=== PATIENT | male | born 1945 | race Caucasian/White ===

== ENCOUNTER 2020-04-03 15:28 | Emergency (ER) | payer MEDICARE, OTHER ==
[~2020-04-03] VITALS: Ht 177.8 cm; Wt 92.0 kg
--- NOTE | 2020-04-03 15:43 | PHYS DOC ---
General Adult EDM: Chief Complaint: DIZZY/LIGHT HEADED HPI: HPI: 74-year-old male coming in for shortness of breath and hypoxia. Is known Covid diagnosis for little over a week but has noted increasing dyspnea on exertion. Is having difficulty walking to his restroom without getting short of breath. Has a pulse ox at home which has been reading in the upper 70s. Instructed by his primary care physician to present to the ER for hospital mission. Has had cough productive of yellow phlegm, body aches. Denies loss of sense of smell, vomiting, diarrhea. Has a history of coronary artery disease and heart failure. States he has had stents in the past but they were removed. Takes aspirin but no other blood thinners due to history of stomach cancer. Review of Systems: Review of Systems: Constitutional: Denies fever or chills Eyes: Denies change in visual acuity HENT: Denies nasal congestion or sore throat Respiratory: Productive cough and shortness of breath Cardiovascular: Denies chest pain or edema GI: Denies abdominal pain, nausea, vomiting, bloody stools or diarrhea : Denies dysuria Musculoskeletal: Denies back pain or joint pain Integument: Denies rash Neurologic: Denies headache, focal weakness or sensory changes Endocrine: Denies polyuria or polydipsia Lymphatic: Denies swollen glands Psychiatric: Denies depression or anxiety Heart Score: Risk Factors: Risk Factors: DM, Current or recent (<one month) smoker, HTN, HLP, family history of CAD, obesity. Risk Scores: Score 0 - 3: 2.5% MACE over next 6 weeks - Discharge Home Score 4 - 6: 20.3% MACE over next 6 weeks - Admit for Clinical Observation Score 7 - 10: 72.7% MACE over next 6 weeks - Early Invasive Strategies Current Medications: Current Meds: Sertraline 50 mg, furosemide 80 mg once a day, baby aspirin 81 mg once daily, pantoprazole 40 mg once daily, eplerenone 50 mg once daily, pravastatin 20 mg daily, finasteride 5 mg daily, ezetimibe 10 mg once daily, carvedilol 25 mg twice daily, Klor-Con 10 mEq as needed, nitroglycerin as needed Allergies: Allergies: Allergies Uncoded Allergies Type Severity Reaction Last Updated Verified PENICILLIN Allergy Unknown 04/03/20 Physical Exam: PE: Constitutional: Well developed, well nourished, no acute distress, non-toxic appearance. [] HENT: Normocephalic, atraumatic, bilateral external ears normal, oropharynx moist, no oral exudates, nose normal. [] Eyes: PERRLA, EOMI, conjunctiva normal, no discharge. [] Neck: Normal range of motion, no tenderness, supple, no stridor. [] Cardiovascular:Heart rate regular rhythm, no murmur [] Lungs & Thorax: Bilateral breath sounds clear to auscultation [] Abdomen: Bowel sounds normal, soft, no tenderness, no masses, no pulsatile masses. [] Skin: Warm, dry, no erythema, no rash. [] Back: No tenderness, no CVA tenderness. [] Extremities: No tenderness, no cyanosis, no clubbing, ROM intact, no edema. [] Neurologic: Alert and oriented X 3, normal motor function, normal sensory function, no focal deficits noted. [] Psychologic: Affect normal, judgement normal, mood normal. [] EKG: EKG: [] Radiology/Procedures: Radiology/Procedures: CHEST AP ONLY History: Reason: covid, low o2 sats / Spl. Instructions: / History: Comparison: August 04, 2011 Findings: Patchy bibasilar opacity. Small left pleural effusion. Left-sided pacemaker/ICD. Prior mid sternotomy. No pneumothorax. Ill-defined patchy right mid and basilar opacities. Acromioclavicular DJD. Impression: 1. Multifocal pulmonary opacities most prominent within the left lung base, may represent pneumonia including viral pneumonia. Recommend follow-up to ensure resolution. 2. Small left pleural effusion. [] Course & Med Decision Making: Course & Med Decision Making Pertinent Labs and Imaging studies reviewed. (See chart for details) Dr. Bolivar consulted for admission for hypoxia related to Covid [] Dragon Disclaimer: Dragon Disclaimer: This electronic medical record was generated, in whole or in part, using a voice recognition dictation system. Departure Departure: Disposition: DC HOME SELF CARE/HOMELESS Condition: STABLE Referrals: PCP,NO (PCP) NICOLE WICK MD Apr 03, 2020 15:43
--- NOTE | 2020-04-03 16:34 | RAD ---
CHEST AP ONLY History: Reason: covid, low o2 sats / Spl. Instructions: / History: Comparison: August 04, 2011 Findings: Patchy bibasilar opacity. Small left pleural effusion. Left-sided pacemaker/ICD. Prior mid sternotomy. No pneumothorax. Ill-defined patchy right mid and basilar opacities. Acromioclavicular DJD. Impression: 1. Multifocal pulmonary opacities most prominent within the left lung base, may represent pneumonia including viral pneumonia. Recommend follow-up to ensure resolution. 2. Small left pleural effusion. Electronically signed by: Ryan Garrido DO (04/03/2020 4:31 PM) [facility]
[2020-04-03] MEDS ORDERED: IV NORMAL SALINE 50ML 50 ML ONE ×2 (17:28→18:15)
[2020-04-03] MEDS ORDERED: AZITHROMYCIN 500 MG VIAL. IV ONE ×2 (17:28→18:15)
[2020-04-03] MEDS ORDERED: IV NORMAL SALINE 250ML 250 ML ONE ×2 (17:28→18:15)
[2020-04-03] MEDS ORDERED: cefTRIAXone SODIUM 1 GM VIAL ONE ×2 (17:28→18:15)
[2020-04-03] MEDS: DEXAMETHASONE SOD PHOS 10 MG/ML VIAL. IV ONE (18:20)
[2020-04-03] MEDS: AZITHROMYCIN 500 MG in IV NORMAL SALINE 250ML 250 ML IV ONE (18:31)
[2020-04-03 18:40] VITALS: BP 142/80
== END 2020-04-03 19:30 | disposition short-term general hospital (02) ==
LOC: ER 15:28
DX: R06.02 Shortness of breath (principal); R09.02 Hypoxemia; R26.2 Difficulty in walking, not elsewhere classified; Z88.0 Allergy status to penicillin
CPT/HCPCS: 36415; 71045; 83605; 83880; 84484; 85379; 86140; 96365; 96375; 99285; J0456; J0696; J1100; J7050

== ENCOUNTER 2021-05-28 17:02 | Emergency (ER) | payer MEDICARE, OTHER ==
[~2021-05-28] VITALS: Ht 177.8 cm; Wt 91.8 kg
--- NOTE | 2021-05-28 17:12 | EKG ---
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
[2021-05-28] MEDS ORDERED: NITROGLYCERIN SUBLINGUAL 0.4 MG BOTTLE OF 25. SL PRN (17:15)
--- NOTE | 2021-05-28 17:17 | PHYS DOC ---
Past History Past Medical History: A-Fib, Cancer, CHF, Depression, GERD, Heart Disease, Other Additional Past Medical Histor: Malt lymphoma of the stomach (MANOJ MENA APRN) Additional Past Surgical Histo: CABG X2, hand surgery, EGDs, Pacemaker/defibrillator (MANOJ MENA APRN) Alcohol Use: Rarely (MANOJ MENA APRN) General Adult EDM: Chief Complaint: SHORTNESS OF BREATH HPI: HPI: Patient is a 75-year-old male who presents to the emergency department for a 2- week history of shortness of breath with chest pressure. Patient reports that he has congestive heart failure and is normally dyspneic but it has increased. Patient reports a midsternal chest pressure pain it is worse with inspiration. Patient also has history of A. fib, pacemaker, CABG. Patient denies cough, fever, dizziness, nausea, vomiting, abdominal pain. (MANOJ MENA APRN) Review of Systems: Review of Systems: Constitutional: See HPI Respiratory: See HPI Cardiovascular: See HPI GI: See HPI Neuro: See HPI (MANOJ MENA APRN) Allergies: Allergies: Allergies Coded Allergies Type Severity Reaction Last Updated Verified Penicillins Allergy Unknown 04/03/20 Yes (MANOJ EMNA APRN) Physical Exam: PE: Constitutional: Well developed, well nourished, no acute distress, non-toxic appearance. [] HENT: Normocephalic, atraumatic, bilateral external ears normal, oropharynx moist, no oral exudates, nose normal. [] Eyes: PERRL, EOMI, conjunctiva normal, no discharge. [] Neck: Normal range of motion, no tenderness, supple, no stridor. [] Cardiovascular:Heart rate regular rhythm, no murmur, chest pain not reproducible [] Lungs & Thorax: Bilateral breath sounds clear to auscultation [] Abdomen: Bowel sounds normal, soft, no tenderness, obese, no masses, no pulsatile masses. [] Skin: Warm, dry, no erythema, no rash. [] Back: Normal range of motion Extremities: No tenderness, no cyanosis, no clubbing, ROM intact, no edema. [] Neurologic: Alert and oriented X 3, normal motor function, normal sensory function, no focal deficits noted. [] Psychologic: Affect normal, judgement normal, mood normal. [] (MANOJ MENA APRN) EKG: EKG: EKG performed by ER staff at 1708 shows A. fib with PVCs with a rate of 69, QTC of 415, no STEMI read by Dr. Magaña 1710 [] (MANOJ MENA APRN) Radiology/Procedures: Radiology/Procedures: []PROCEDURE: PORTABLE CHEST 1V EXAM: AP View of the chest DATE: 05/28/2021 5:08 PM INDICATION: Reason: mid chest discomfort with trouble breathing times 1 week / Spl. Instructions: / History: COMPARISON: No Prior FINDINGS/ IMPRESSION: Cardiac generator pack obscures a portion of the left chest with leads in stable position. Cardiomediastinal silhouette is stable. Small bilateral pleural effusions, greater on the left. Associated left greater than right lung base opacities, possibly atelectasis or resolving consolidation. Imaging follow-up to resolution is recommended. No pneumothorax. Electronically signed by: Michael Galicia MD (05/28/2021 5:37 PM) [facility] DICTATED AND SIGNED BY: MICHAEL GALICIA MD DATE: 05/28/211735 CC: ROX BURRIS MD; MANOJ MENA APRN ~MTH0 0 (MANOJ MENA APRN) Heart Score: C/O Chest Pain: Yes HEART Score for Chest Pain: HEART Score for Chest Pain Response (Comments) Value History Moderately Suspicious 1 ECG Nonspecific Repolarizatio 1 Age > 65 2 Risk Factors >3 Risk Factors or Hx CAD 2 Troponin < Normal Limit ( ) 0 Total 6 Risk Factors: Risk Factors: DM, Current or recent (<one month) smoker, HTN, HLP, family history of CAD, obesity. Risk Scores: Score 0 - 3: 2.5% MACE over next 6 weeks - Discharge Home Score 4 - 6: 20.3% MACE over next 6 weeks - Admit for Clinical Observation Score 7 - 10: 72.7% MACE over next 6 weeks - Early Invasive Strategies (MANOJ MENA APRN) Course & Med Decision Making: Course & Med Decision Making Pertinent Labs and Imaging studies reviewed. (See chart for details) [] Patient presents to the emergency department for chest pressure and increased shortness of breath x2 weeks. Patient has an extensive health history including A. fib, CHF, pacemaker, obesity, CABG. Work-up in the ER consisted of blood work, EKG, chest x-ray. Patient treated with nitro tablet as he states he took aspirin prior to arrival. Patient's blood work is unremarkable, troponin of 11. His BNP is 1162. Chest x-ray shows left basilar opacity worse than the right lower opacity. Patient is allergic to penicillin. Patient will be needed antibiotic therapy therefore he'll be treated with Levaquin. I would like to admit the patient to this hospital for cardiac observation as his heart score is 6. I discussed patient's findings with him and care plan. Patient and his do not want to be admitted at this facility and do not want to be transferred to [facility]. They're requesting transfer to [facility] where his cardiology is at. I contacted [facility] transfer line and they state that they're not accepting any transfers at this time. I discussed these results with patient and they state that they will not be admitted at this facility. They acknowledged the risks associated with leaving AGAINST MEDICAL ADVICE without admission and cardiac observation which includes worsening of patient's condition and . Patient and his are capable of making medical decisions. AMA papers signed. Patient will be discharged home with an antibiotic. I discussed follow-up information with patient and the need to go to [facility]. (MANOJ MENA APRN) Farihaon Disclaimer: Yang Disclaimer: This electronic medical record was generated, in whole or in part, using a voice recognition dictation system. (MANOJ MENA APPLICATION INTEGRATION SPECIALIST) Departure Departure: Impression: Primary Impression: Chest pain Qualified Codes: R07.9 - Chest pain, unspecified Additional Impressions: Pneumonia Qualified Codes: J18.9 - Pneumonia, unspecified organism CHF exacerbation Qualified Codes: I50.9 - Heart failure, unspecified Disposition: LEFT AGAINST MEDICAL ADVICE Condition: GUARDED Referrals: ROX BURRIS MD (PCP) Patient Instructions: Chest Pain (Nonspecific) Additional Instructions: You were seen in the emergency department today for chest pain. You were noted to have a lower lobe pneumonia. This will be treated with the antibiotic. Please start and finish the antibiotic completely. This may cause GI upset. As we discussed, I would've like to have admitted you at this hospital for your chest pain but you refused. You signed out AGAINST MEDICAL ADVICE. You understand that leaving AGAINST MEDICAL ADVICE can lead to worsening of your condition and . 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 Scripts Levofloxacin (LEVOFLOXACIN) 750 Mg Tablet 1 TAB PO DAILY for pneumonia, #5 TAB 0 Refills Prov: MANOJ MENA APRN 05/28/21 Attending Signature Attending Signature I have participated in the care of this patient and I have reviewed and agree with all pertinent clinical information above including history, exam, and jazmine mmendations. (MACKENZIE LIVINGSTON MD) MANOJ MENA APRN May 28, 2021 17:17 MACKENZIE LIVINGSTON MD May 31, 2021 17:56
[2021-05-28 17:36] LABS: BASO # 0.1 x10^3/uL (0.0-0.2); BASO % 1 % (0-3); EOS # 0.8 x10^3/uL (0.0-0.7); EOS % 9 % (0-3); HEMATOCRIT 40.3 % (39.0-53.0); HEMOGLOBIN 13.2 g/dL (13.0-17.5); LYMPH # 1.6 x10^3/uL (1.0-4.8); LYMPH % 17 % (24-48); MEAN CORPUSCULAR HEMOGLOBIN 28 pg (25-35); MEAN CORPUSCULAR HGB CONC 33 g/dL (31-37); MEAN CORPUSCULAR VOLUME 86 fL (79-100); MONO # 1.2 x10^3/uL (0.0-1.1); MONO % 13 % (0-9); NEUT # 5.7 x10^3uL (1.8-7.7); NEUT % 61 % (31-73); PLATELET COUNT 295 x10^3/uL (140-400); RED BLOOD COUNT 4.71 x10^6/uL (4.30-5.70); RED CELL DISTRIBUTION WIDTH 15.3 % (11.5-14.5); WHITE BLOOD COUNT 9.4 x10^3/uL (4.0-11.0)
--- NOTE | 2021-05-28 17:39 | RAD ---
EXAM: AP View of the chest DATE: 05/28/2021 5:08 PM INDICATION: Reason: mid chest discomfort with trouble breathing times 1 week / Spl. Instructions: / History: COMPARISON: No Prior FINDINGS/ IMPRESSION: Cardiac generator pack obscures a portion of the left chest with leads in stable position. Cardiomediastinal silhouette is stable. Small bilateral pleural effusions, greater on the left. Associated left greater than right lung base opacities, possibly atelectasis or resolving consolidation. Imaging follow-up to resolution is recomm ended. No pneumothorax. Electronically signed by: Michael Smith MD (05/28/2021 5:37 PM) NELIA
[2021-05-28 17:52] LABS: CREATININE 0.9 mg/dL (0.7-1.3); GFR 82.5; POTASSIUM 4.2 mmol/L (3.5-5.1)
[2021-05-28 17:58] LABS: ALBUMIN 3.7 g/dL (3.4-5.0); TOTAL BILIRUBIN 0.3 mg/dL (0.2-1.0); TOTAL PROTEIN 7.4 g/dL (6.4-8.2)
[2021-05-28] MEDS ORDERED: LEVO750T5 PO (18:47)
[2021-05-28 19:00] VITALS: BP 118/56
[2021-05-28 19:02] LABS: BGAS PH 7.45 (7.35-7.46)
== END 2021-05-28 19:19 | disposition left against medical advice (07) ==
LOC: ER 17:02
DX: J18.9 Pneumonia, unspecified organism (principal); R07.89 Other chest pain; I50.9 Heart failure, unspecified; K21.9 Gastro-esophageal reflux disease without esophagitis; Z88.0 Allergy status to penicillin
CPT/HCPCS: 36415; 36600; 71045; 80053; 82803; 83880; 84484; 85025; 93005; 99285-25